=== PATIENT | female | born 1980 | race Caucasian/White ===

== ENCOUNTER 2019-03-04 21:01 | Emergency (ER) | payer OTHER ==
[~2019-03-04] VITALS: Ht 162.6 cm; Wt 61.7 kg
[~2019-03-04 21:01] MED LIST: PRENATAL1 TAB PO
[2019-03-04] MEDS ORDERED: VITAMIN B-12500 MCG (22:15)
[2019-03-04] MEDS ORDERED: [UNRECOGNIZED DRUG - OTHER] (22:15)
[2019-03-05] MEDS ORDERED: MECLIZINE HCL25 MG PO (00:48)
== END 2019-03-05 01:29 | disposition home or self-care (01) ==
LOC: ER 21:01
DX: R42 Dizziness and giddiness (principal); E86.0 Dehydration

== ENCOUNTER 2020-11-18 15:22 | Outpatient (CLI) | payer OTHER ==
[~2020-11-18 15:22] MED LIST changes: +MECLIZINE HCL25 MG PO; +VITAMIN B-12500 MCG; +[UNRECOGNIZED DRUG - OTHER]
== END 2020-11-18 18:50 | disposition home or self-care (01) ==
LOC: LAB 15:22
DX: Z03.818 Encounter for observation for suspected exposure to other biological agents ruled out (principal)

== ENCOUNTER → 2021-03-01 12:08 | Outpatient (CLI) | payer OTHER | END | disposition home or self-care (01) | LOC: PPH VACUNA 12:08 | DX: Z23 Encounter for immunization (principal) ==